=== PATIENT | female | born 2000 | race Caucasian/White ===

== ENCOUNTER 2022-07-04 13:27 | Outpatient (CLI) | payer BC, SELFPAY ==
[2022-07-04 22:13] LABS: Hepatitis B Surface Antigen* Negative (Negative)
[2022-07-04 22:24] LABS: HIV 1/2/P24 Combo Screen* Negative (Negative)
[2022-07-04 22:31] LABS: Hepatitis C Virus Antibody* Negative (Negative)
[2022-07-04 23:42] LABS: Hepatitis B Surface Antibody* Negative (Negative)
[2022-07-04 23:49] LABS: Chlamydia DNA Amplified* NOT DETECTED (No Detected); GC DNA Amplified* NOT DETECTED (No Detected)
[2022-07-06 17:19] LABS: Rapid Plasma Reagin (RPR) Non Reactive (Non Reactive)
== END 2022-07-04 13:28 | disposition home or self-care (01) ==
PROVIDERS: PCP Family Medicine; Visit Provider Physician Assistant Medical
DX: Z01.419 Encounter for gynecological examination (general) (routine) without abnormal findings
CPT/HCPCS: 86592; 86703; 86706; 86803; 87340; 87491; 87591

== ENCOUNTER 2023-03-13 15:30 | Outpatient (RCR) | payer BC, SELFPAY | END 2023-07-11 15:32 | disposition home or self-care (01) | PROVIDERS: PCP Physician Assistant Medical; Visit Provider Physician Assistant Surgical | DX: M65.9 Synovitis and tenosynovitis, unspecified (principal); M65.4 Radial styloid tenosynovitis [de Quervain]; Z51.89 Encounter for other specified aftercare | CPT/HCPCS: 97035; 97140; 97166; 97530 ==

== ENCOUNTER 2024-06-20 20:20 | Emergency (ER) | payer BC, SELFPAY ==
[2024-06-20 20:42] VITALS: BP 110/76; PULSE 81; RESP 16; TEMP 36.6; O2SAT 98; BMI 51.0
[2024-06-20 20:51] LABS: Ur HCG Qualitative* POSITIVE (Negative)
--- NOTE | 2024-06-20 21:01 | CRLHL7_ITS ---
For Patients: As a result of the Century Cures Act, medical imaging exams and procedure reports are released immediately into your electronic medical record. You may view this report before your referring provider. If you have questions, please contact your health care provider. Indication: Abdominal pain, positive test Technique: Transvaginal pelvic ultrasound with evaluation of and maternal anatomy. Grayscale and color Doppler imaging utilized. Comparison: None Findings: Single live intrauterine gestation noted. heart rate measures 147 bpm. BPD 2.7 centimeters. HC 10.4 centimeters. AC 8.3 centimeters. FL 1.3 centimeters. This corresponds to a age of 14 weeks 3 days. EFW 95 grams. Placenta is posterior position. Fetus in breech position. Impression: Single live intrauterine gestation with parameters as above. Dictated by Eric Blankenship MD @ 06/20/2024 10:30:38 PM (Electronically Signed)
[2024-06-20 21:03] LABS: Appearance Urine Clear (Clear); Bilirubin Urine Negative (Negative); Blood Urine Negative (Negative); Color Urine Yellow (Yellow); Glucose Urine Negative (Negative); Ketones Urine Negative (Negative); Leukocyte Esterase Urine Trace (Negative); Nitrite Urine Negative (Negative); Protein Urine Negative (Negative); Specific Gravity Urine 1.015 (1.000-1.030); Urobilinogen Urine 0.2 (0.2-1.0); pH Urine 5.5 (5.0-8.5)
[2024-06-20 21:19] LABS: Bacteria Urine Few; RBC Urine 0-2 (0-2); Squamous Epithelial Cell Urine Few (None-Few)
[2024-06-20 21:26] LABS: Lactate* 0.6 mmol/L (0.5-1.9)
[2024-06-20 21:28] LABS: Basophils Absolute Auto 0.02 K/uL (0.00-0.30); Basophils Percent Auto 0.2 % (0.0-3.0); Eosinophils Absolute Auto 0.08 K/uL (0.00-0.50); Eosinophils Percent Auto 0.8 % (0.0-7.0); Hematocrit 36.1 % (33.0-51.0); Hemoglobin* 12.4 gm/dL (12.0-16.0); Immature Granulocytes Abs Auto 0.04 K/uL (0.00-0.30); Immature Granulocytes Pct Auto 0.4 %; Lymphocytes Absolute Auto 2.86 K/uL (0.90-2.90); Lymphocytes Percent Auto 27.7 % (20-44); Mean Corpuscular HGB Conc 34 gm/dL (32-36); Mean Corpuscular Hemoglobin 29 pg (26-34); Mean Corpuscular Volume 85 fL (80-100); Monocytes Percent Auto 6.8 % (0.0-11.0); Neutrophils Absolute Auto 6.61 K/uL (1.7-7.0); Neutrophils Percent Auto 64.1 % (42.0-72.0); Platelet Count* 238 K/uL (140-440); RDW Coefficient of Variation % 12.8 % (11.5-15.5); Red Blood Count 4.27 m/uL (4.00-5.20); White Blood Count* 10.31 K/uL (4.50-11.00)
[2024-06-20 21:31] LABS: Slide Review Reflex No
--- NOTE | 2024-06-20 21:42 | ED_ITS ---
HPI - General Adult General Chief complaint: Abdominal Pain Stated complaint: Abdominal pain Time Seen by Provider: 06/20/24 21:00 Source: patient Mode of arrival: ambulatory Limitations: no limitations History of Present Illness HPI narrative: 23-year-old female coming in today complaining of abdominal pain. Pain is been present for a couple of weeks. Pain is located in the epigastric region but she also has some suprapubic discomfort. She denies vomiting. No fevers or chills. States that she has had nausea for about 3 weeks. She states this is not necessarily unusual for her, she has PCOS which causes nausea occasionally. Patient is sexually active, is not on any control. Her last menstrual period was 3 months ago which is also not unusual for her, her menstrual periods are quite irregular. She denies any weight changes that she is aware of. Nothing really seems to make the pain better or worse. Patient is currently not taking any medications. Related Data Home Medications ?Medication ?Instructions ?Recorded ?Confirmed metformin 500 mg tablet,extended tab PO 07/04/22 02/16/24 release 24 hr phentermine 37.5 mg tablet 37.5 mg PO QDAY 07/04/22 02/16/24 vitamin B12 1,000 mcg-folic acid janet sublingual QDAY 07/04/22 02/16/24 400 mcg sublingual lozenge ergocalciferol (vitamin D2) 1,250 1,250 mcg PO QDAY 01/13/23 02/16/24 mcg (50,000 unit) capsule (Vitamin D2) Allergies Allergy/AdvReac Type Severity Reaction Status Date / Time No Known Allergies Allergy Unknown Verified 02/16/24 11:23 Review of Systems Status of ROS: Reports: 10 or more systems reviewed and unremarkable except as noted in History and below [facility] Medical History Viral upper respiratory tract infection ?J06.9 - Acute upper respiratory infection, unspecified (ICD-10) Upper respiratory infection ?J06.9 - Acute upper respiratory infection, unspecified (ICD-10) Sore throat ?J02.9 - Acute pharyngitis, unspecified (ICD-10) Pleurisy ?R09.1 - Pleurisy (ICD-10) High ankle sprain of left lower extremity ?S93.492A - Sprain of other ligament of left ankle, initial encounter (ICD- 10) Benign paroxysmal positional vertigo ?H81.10 - Benign paroxysmal vertigo, unspecified ear (ICD-10) Surgical History No history of previous surgery Family History Mother Diabetes Maternal Grandmother Diabetes Social History Narrative: Does not drink alcohol Non-smoker Smoking Status: Never smoker Exam Narrative: Exam Narrative: obese, well-developed patient in no acute distress. Alert and oriented. Answers questions appropriately. Mood and affect are appropriate. Thoughts are goal oriented and rational. No tangential or magical thinking noted. Patient speaks in full sentences without needing to catch her breath. HEENT: Normocephalic atraumatic. Pupils are equally round reactive to light. Extraocular muscles are intact. Conjunctivae are moist without any icterus noted. Moist mucous membranes. Posterior pharynx is normal. Neck is soft without any lymphadenopathy or thyromegaly. No masses are appreciated. Cardiovascular: Heart is regular rate and rhythm S1 and S2 are present without any murmurs. Lungs: Clear to auscultation bilaterally no wheezes rhonchi or rales are appreciated. Patient takes deep breaths without any discomfort. Abdomen: Soft and nondistended with normal bowel sounds. Mild epigastric tenderness, negative Genao sign. No suprapubic tenderness. Difficult to assess for organomegaly or masses secondary to body habitus. Extremities: Bilateral lower extremities are without edema. Skin: Well perfused without any obvious rashes. Const: Vital Signs, click to edit/add: Vital Signs - 24 hr 06/20/24 20:42 Temperature 97.8 F Pulse Rate [Pulse Oximeter] 81 Respiratory Rate 16 Blood Pressure [Ri ght Upper Arm] 110/76 Pulse Oximetry 98 Course Course ED Course: CBC unremarkable. Urine shows trace leukocyte esterase, 10-25 wbc's. Chemistries are normal, LFTs are normal. CRP 1.4. Normal lipase. Urine test is positive. Patient states that she was unaware that she was . Because of this, we proceeded with a ultrasound which showed a viable intrauterine at 14.3 weeks gestation. Upon further conversation, patient states that she did take a test yesterday at home and it was positive. Vital Signs Vital signs: Initial Vital Signs Temperature 97.8 F 06/20/24 20:42 Temperature Source Temporal Artery Scan 06/20/24 20:42 Pulse Rate 81 06/20/24 20:42 Respiratory Rate 16 06/20/24 20:42 Blood Pressure 110/76 06/20/24 20:42 Blood Pressure Mean 87 06/20/24 20:42 Blood Pressure Position Sitting 06/20/24 20:42 Pulse Oximetry 98 06/20/24 20:42 Vital Signs Temperature 97.8 F 06/20/24 20:42 Pulse Rate 81 06/20/24 20:42 Respiratory Rate 16 06/20/24 20:42 Blood Pressure 110/76 06/20/24 20:42 Pulse Oximetry 98 06/20/24 20:42 Temperature 97.8 F 06/20/24 20:42 Pulse Rate 81 06/20/24 20:42 Respiratory Rate 16 06/20/24 20:42 Blood Pressure 110/76 06/20/24 20:42 Pulse Oximetry 98 06/20/24 20:42 Medical Decision Making MDM Narrative Medical decision making narrative: 23-year-old female with epigastric discomfort, likely due to GERD. We discussed famotidine use. Suprapubic discomfort, question UTI. Will treat based on urine cultures. at 14.3 weeks gestation. Patient will start daily multivitamin. Patient states that she is not taking any medications at this time. Will call OBGYN to schedule appointment. Lab Data Lab results reviewed: Yes I reviewed the patient's lab results Labs: Lab Results 06/20/24 06/20/24 Range/Units 20:45 21:15 WBC 10.31 (4.50-11.00) K/uL RBC 4.27 (4.00-5.20) m/uL Hgb 12.4 (12.0-16.0) gm/dL Hct 36.1 (33.0-51.0) % MCV 85 (80-100) fL MCH 29 (26-34) pg MCHC 34 (32-36) gm/dL RDW Coeff of Stuart 12.8 (11.5-15.5) % Plt Count 238 (140-440) K/uL Neut % (Auto) 64.1 (42.0-72.0) % Lymph % (Auto) 27.7 (20-44) % [place] % (Auto) 6.8 (0.0-11.0) % Eos % (Auto) 0.8 (0.0-7.0) % Baso % (Auto) 0.2 (0.0-3.0) % Neut # (Auto) 6.61 (1.7-7.0) K/uL Lymph # (Auto) 2.86 (0.90-2.90) K/uL [place] # (Auto) 0.70 (0.00-0.90) K/UL Eos # (Auto) 0.08 (0.00-0.50) K/uL Baso # (Auto) 0.02 (0.00-0.30) K/uL Abs Immat Gran (auto) 0.04 (0.00-0.30) K/uL Imm/Tot Granulo (auto) 0.4 % Sodium 135 (135-149) mmol/L Potassium 3.9 (3.6-5.1) mmol/L Chloride 106 (96-114) mmol/L Carbon Dioxide 22 (20-32) mmol/L Anion Gap 7 (7-15) mEq/L BUN 8 (5-24) mg/dL Creatinine 0.5 (0.5-1.5) mg/dL Estimated Creat Clear 138.40 Estimated GFR 135 ml/min Glucose 91 (60-115) mg/dL Lactate 0.6 (0.5-1.9) mmol/L Calcium 9.8 (8.4-10.6) mg/dL Total Bilirubin 0.4 (0.1-1.5) mg/dL Direct Bilirubin 0.4 (0.0-0.5) mg/dL AST 21 (12-35) U/L ALT 16 (4-35) U/L Alkaline Phosphatase 63 (40-150) U/L C-Reactive Protein 1.4 H (0.5-1.0) mg/dL Total Protein 7.2 (6.0-8.3) g/dL Albumin 4.3 (3.3-5.0) g/dL Lipase 112 (23-300) U/L Urine Color Yellow (Yellow) Urine Appearance Clear (Clear) Urine pH 5.5 (5.0-8.5) Ur Specific [place] 1.015 (1.000-1.030) Urine Protein Negative (Negative) Urine Glucose (UA) Negative (Negative) Urine Ketones Negative (Negative) Urine Blood Negative (Negative) Urine Nitrite Negative (Negative) Urine Bilirubin Negative (Negative) Urine Urobilinogen 0.2 (0.2-1.0) Ur Leukocyte Esterase Trace A (Negative) Urine RBC 0-2 (0-2) Urine WBC 10-25 A (0-5) Ur Squamous Epith Cells Few (None-Few) Urine Bacteria Few A (None) Urine HCG, Qual POSITIVE H (Negative) Discharge Plan Discharge Clinical Impression: GERD (gastroesophageal reflux disease), Patient Disposition: Home, Self-Care Condition: Stable Additional Instructions: The pain at the top your stomach is likely caused by GERD or gastroesophageal reflux-this is when acid buildup in the stomach and causes irritation. You can take an [id number] Zantac as needed for the symptoms. You are , baby is at approximately 14 weeks and 3 days gestation. Recommend you start taking a daily vitamin which can be purchased [id number]. You should call the Women's Health office tomorrow to schedule a appointment. We also checked urine cultures to see if there is any bacteria growing in the urine. If this is positive you will be called in the next couple of days and will be given an antibiotic. Prescriptions: No Action metformin 500 mg tablet extended release 24 hr PO phentermine 37.5 mg tablet 37.5 mg PO QDAY vitamin [id number] acid 1,000-400 mcg lozenge sublingual QDAY ergocalciferol (vitamin D2) [Vitamin D2] 1,250 mcg (50,000 unit) capsule 1,250 mcg PO QDAY Follow Up/Referrals: Katey Jacinto PA-C [Primary Care Provider] - Stand Alone Forms: [facility] Info Instructions
[2024-06-20 21:44] LABS: Chloride* 106 mmol/L (96-114); Potassium* 3.9 mmol/L (3.6-5.1); Sodium* 135 mmol/L (135-149)
[2024-06-20 21:45] LABS: Albumin* 4.3 g/dL (3.3-5.0)
[2024-06-20 21:46] LABS: Creatinine* 0.5 mg/dL (0.5-1.5); Estimated Glomerular Filt Rate 135 ml/min
[2024-06-20 21:47] LABS: Anion Gap 7 mEq/L (7-15); Blood Urea Nitrogen* 8 mg/dL (5-24); Carbon Dioxide* 22 mmol/L (20-32); Glucose* 91 mg/dL (60-115)
[2024-06-20 21:48] LABS: Alanine Aminotransferase* 16 U/L (4-35); Alkaline Phosphatase* 63 U/L (40-150); Aspartate Amino Transferase* 21 U/L (12-35); Bilirubin Direct* 0.4 mg/dL (0.0-0.5); Bilirubin Total* 0.4 mg/dL (0.1-1.5); Calcium* 9.8 mg/dL (8.4-10.6); Lipase* 112 U/L (23-300); Total Protein* 7.2 g/dL (6.0-8.3)
[2024-06-20 21:50] LABS: C Reactive Protein* 1.4 mg/dL (0.5-1.0)
[2024-06-20 22:15] VITALS: BP 116/71; PULSE 74; RESP 16
[2024-06-20 22:16] VITALS: BP 121/74; PULSE 79; RESP 16; TEMP 36.6; O2SAT 98
== END 2024-06-20 22:17 | disposition home or self-care (01) ==
PROVIDERS: Emergency Provider Family Medicine; PCP Physician Assistant Medical
DX: K21.9 Gastro-esophageal reflux disease without esophagitis (principal); Z32.01 Encounter for pregnancy test, result positive; Z3A.14 14 weeks gestation of pregnancy
CPT/HCPCS: 36415; 76817; 80048; 80076; 81001; 81025; 83605; 83690; 85025; 86140; 87086; 93976; 99284

== ENCOUNTER 2024-06-28 14:00 | Outpatient (CLI) | payer BC, SELFPAY | END 2024-06-28 14:01 | disposition home or self-care (01) | LOC: NFLDREF 06-29 08:26 | PROVIDERS: PCP Physician Assistant Medical; Referring Provider Physician Assistant Medical; Visit Provider Advanced Practice Midwife | DX: O09.32 Supervision of pregnancy with insufficient antenatal care, second trimester (principal); Z3A.15 15 weeks gestation of pregnancy; Z67.40 Type O blood, Rh positive | CPT/HCPCS: 86592; 86703; 86704; 86706; 86762; 86787; 86803; 86850; 86900; 86901; 87340 ==

== ENCOUNTER 2024-07-21 12:48 | Outpatient (CLI) | payer BC, SELFPAY | END 2024-07-21 12:49 | disposition home or self-care (01) | LOC: US 12:48 | PROVIDERS: PCP Physician Assistant Medical; Visit Provider Advanced Practice Midwife | DX: O99.212 Obesity complicating pregnancy, second trimester (principal); Z3A.18 18 weeks gestation of pregnancy | CPT/HCPCS: 76811 ==

== ENCOUNTER 2024-08-18 12:57 | Outpatient (CLI) | payer BC, SELFPAY | END 2024-08-18 12:58 | disposition home or self-care (01) | LOC: US 12:58 | PROVIDERS: PCP Physician Assistant Medical; Visit Provider Midwife | DX: O99.212 Obesity complicating pregnancy, second trimester (principal); E66.01 Morbid (severe) obesity due to excess calories; Z3A.22 22 weeks gestation of pregnancy | CPT/HCPCS: 76816 ==

== ENCOUNTER 2024-09-15 14:20 | Outpatient (CLI) | payer BC, SELFPAY | END 2024-09-15 14:21 | disposition home or self-care (01) | LOC: US 14:21 | PROVIDERS: PCP Physician Assistant Medical; Visit Provider Midwife | DX: O99.212 Obesity complicating pregnancy, second trimester (principal); Z3A.26 26 weeks gestation of pregnancy | CPT/HCPCS: 76816; 86592 ==

== ENCOUNTER 2024-11-04 13:00 | Outpatient (CLI) | payer BC, SELFPAY ==
--- NOTE | 2024-11-04 13:00 | CRLHL7_ITS ---
For Patients: As a result of the Cures Act, medical imaging exams and procedure reports are released immediately into your electronic medical record. You may view this report before your referring provider. If you have questions, please contact your health care provider. INDICATION: Obesity TECHNIQUE: Real time castro scale imaging of the fetus was performed. COMPARISON: 08/18/2024 FINDINGS/IMPRESSION: Sonographic imaging demonstrates a single living intrauterine gestation. Fetus demonstrates a regular cardiac rate of 163 beats per minute. Fetus has a vertex position. The placenta lies posterior. Amniotic fluid volume appears normal and there is a single deepest pocket of 3.3 cm. The estimated weight is 2138gm which lies at the 21st %. On the prior OB ultrasound dated 08/18/2024 the estimated weight was at the 28th percentile. BPD 89th percentile. HC 82nd percentile. AC 19th percentile. FL 5th percentile. Sonographic gestational age 34 weeks 2 days and a sonographic due date of 12/14/2024. Good correlation with dates. Normal interval growth. The fetus was active and demonstrated normal breathing movements. There was normal flexion and extension of the trunk and extremities. Dictated by Shivam Shaver MD @ 11/04/2024 8:55:51 PM (Electronically Signed)
== END 2024-11-04 13:01 | disposition home or self-care (01) ==
LOC: US 13:00
PROVIDERS: PCP Physician Assistant Medical; Visit Provider Midwife
DX: O99.213 Obesity complicating pregnancy, third trimester (principal); Z3A.34 34 weeks gestation of pregnancy
CPT/HCPCS: 76816; 76819

== ENCOUNTER 2024-11-04 13:59 | Outpatient (CLI) | payer BC, SELFPAY | END 2024-11-04 14:00 | disposition home or self-care (01) | LOC: NFLDREF 14:03 | PROVIDERS: PCP Physician Assistant Medical; Visit Provider Advanced Practice Midwife | DX: O99.213 Obesity complicating pregnancy, third trimester (principal); Z3A.34 34 weeks gestation of pregnancy | CPT/HCPCS: 82239; 84450; 84460 ==

== ENCOUNTER 2024-11-11 15:26 | Outpatient (CLI) | payer BC, SELFPAY ==
[2024-11-12 14:13] LABS: Strep B DNA Probe Negative (Negative)
[2024-11-12 14:58] LABS: Strep B Susceptibility Needed? No
== END 2024-11-11 15:27 | disposition home or self-care (01) ==
PROVIDERS: PCP Physician Assistant Medical; Visit Provider Advanced Practice Midwife
DX: O99.213 Obesity complicating pregnancy, third trimester (principal); O99.713 Diseases of the skin and subcutaneous tissue complicating pregnancy, third trimester; L29.9 Pruritus, unspecified; Z3A.35 35 weeks gestation of pregnancy
CPT/HCPCS: 82239; 84450; 84460; 87081; 87653

== ENCOUNTER 2024-11-18 15:40 | Outpatient (CLI) | payer BC, SELFPAY | END 2024-11-18 15:41 | disposition home or self-care (01) | PROVIDERS: PCP Physician Assistant Medical; Visit Provider Advanced Practice Midwife | DX: O99.713 Diseases of the skin and subcutaneous tissue complicating pregnancy, third trimester (principal); L29.9 Pruritus, unspecified; O99.213 Obesity complicating pregnancy, third trimester; E66.01 Morbid (severe) obesity due to excess calories; Z3A.36 36 weeks gestation of pregnancy | CPT/HCPCS: 82239; 84450; 84460 ==

== ENCOUNTER 2024-11-25 15:28 | Outpatient (CLI) | payer BC, SELFPAY | END 2024-11-25 15:29 | disposition home or self-care (01) | PROVIDERS: PCP Physician Assistant Medical; Visit Provider Advanced Practice Midwife | DX: O99.713 Diseases of the skin and subcutaneous tissue complicating pregnancy, third trimester (principal); L29.9 Pruritus, unspecified; Z3A.37 37 weeks gestation of pregnancy | CPT/HCPCS: 82239; 84450; 84460 ==

== ENCOUNTER 2024-11-28 11:13 | Inpatient (IN) | payer BC, SELFPAY ==
[2024-11-28] VITALS (11 sets, daily range): BP systolic 110–129; BP diastolic 66–79; PULSE 74–86; RESP 16–18; TEMP 36.8–37.4; O2SAT 98–100; BMI 50.7
--- NOTE | 2024-11-28 12:37 | P.LDBA_ITS ---
Subjective History of Present Illness Date Seen: 11/28/24 Narrative: Patient is being admitted to Labor and Delivery for induction of labor due to new diagnosis of intrahepatic cholestasis of . She is a 23 year old at 37.3 weeks gestation. Her full history and physical was dictated by Ludmila Toledo CNM on 11/25/24. Please see this for details. Specific Issues/Plans Partner: Stanley Baby: pt does not want to know sex H&P done 11/25/2023 by DEYVI Kiran #BMI >40 nutrition referral: Completed 09/09/2024 anesthesia consult: Completed 09/14/2024 OB consult: completed 11/15/2024 by MD PATRICIA Level II US-ordered, done Early screening-not done, new ACOG recommendation for Hgb A1C only- 5.6 Weekly BPP and/or NST starting at 34 weeks: testing request form updated 08/30 Growth US at 28 weeks and 34 weeks 34wks: EFW 21%, SDP 3.3 06/17 Recommend considering elective IOL at 39.0 weeks #Hx depression and anxiety no medications at this time using exercise to manage mood #Panic attacks, started around 20 weeks Therapy referral Had them in her teens but not since #Rubella non-immune, recommend vaccine PP #New onset itching without rash on palms and forearms at 34 wks LFTs and Bile acids normal at 34, 35 and 36wks Weekly labs if itching persists IMAGING: * Level 2 US 07/21/2024 with normal findings, but some suboptimal views. jorge alberto mmend follow up ultrasound with [facility] in 4 weeks to reassess growth and suboptimally visualized anatomy. Following this, recommend follow up growth at 28 and 34 weeks in addition to weekly testing starting at 34 weeks, which I presume will be scheduled with patient's primary [employer].--Follow up ordered. * 08/18/2024 anatomy that was suboptimally seen at the prior US appeared within normal limits today, although some portions of the anatomy were suboptimally seen as noted above. Recommend a repeat US in 4 weeks at [facility] in [place] to re-evaluate growth and anatomy, including anatomy that was suboptimally seen today.--order placed * 09/15/2024 [facility] US follow-up:Impression: 1. Serrano at 26w6d gestational age. 2. The remaining anatomic survey was completed, no anomalies commonly detected by ultrasound were identified within the limits of ultrasound. 3. Growth parameters and estimated weight were consistent with gestational age predicted by assigned CYRUS. 4. The amniotic fluid volume appeared normal. EFW 19.4% * 11/04/24: EFW 21%ile. Normal findings with good growth. COVID: initial series, not boosted, declined Flu: TDAP: 10/08/2024 RSV: 11/11/2024 32wk Mental Health: 34wk Hgb: GBS OB - Problem Based A/P Additional Plan (1) Intrahepatic cholestasis of : Status: Acute (2) 37 weeks gestation of : Status: Acute (3) Encounter for induction of labor: Status: Acute (4) Morbid obesity with body mass index (BMI) of 40.0 or higher: Status: Acute (5) Panic attacks: Status: Acute (6) Chronic major depressive disorder: Status: Acute (7) Chronic anxiety: Status: Acute Plan Assessment:?? at 37.3 weeks gestation?? GBS negative? Patient is coping well plan for induction of labor? Labor type: Induced, Not in labor? Category 1 FHR pattern.? complicated by: BMI >40, Hx of depression and anxiety, panic attacks starting around 20 weeks, Rubella non-immune, Intrahepatic cholestasis of Plan:?? * ?Admit to L & D? * IV access: not needed at this time. * Monitoring per policy: continuous ? * Candidate for analgesia of choice.? Planning unmedicated for pain management * Reviewed risks and benefits of IOL with Cook balloon, Pitocin vs Cytotec/Cervidil. Cervix dilated to 3cm, decision to use Cytotec made with shared decision making. Pitocin to follow if needed.? * Patient encouraged to reposition and ambulate to promote physiologic labor and . * Anticipate ? Delivery/Labor/Induction Plan Plan: induction Induction method: per misoprostol protocol OB Exam Physical Exam Vital signs: Pulse BP Pulse Ox 86 121/75 98 11/28/24 11:48 11/28/24 11:48 11/28/24 11:47 Narrative: Vitals Reviewed Constitutional:? Alert and oriented x3 HEENT:? Normocephalic, atraumatic Neck:? Supple Lungs:? Clear to auscultation bilaterally Heart:? Regular rate and rhythm, no murmur, rub or gallop Abdomen:? Soft, nontender, and gravid. Vertex by Basilio's, confirmed with cervical exam. Extremities:? No edema or erythema Cervix: 3 cm/50%/-3 station/vertex NST: 145 bpm/moderate variability/+accelerations/-decelerations/no contractions Detailed Labor and Delivery Exam Patient Gravid: Yes
[2024-11-28 13:32] LABS: Basophils Absolute Auto 0.02 K/uL (0.00-0.30); Basophils Percent Auto 0.2 % (0.0-3.0); Eosinophils Absolute Auto 0.07 K/uL (0.00-0.50); Eosinophils Percent Auto 0.7 % (0.0-7.0); Hematocrit 34.8 % (33.0-51.0); Immature Granulocytes Abs Auto 0.06 K/uL (0.00-0.30); Immature Granulocytes Pct Auto 0.6 %; Lymphocytes Percent Auto 19.7 % (20-44); Mean Corpuscular HGB Conc 35 gm/dL (32-36); Mean Corpuscular Hemoglobin 29 pg (26-34); Mean Corpuscular Volume 85 fL (80-100); Monocytes Percent Auto 4.7 % (0.0-11.0); Neutrophils Percent Auto 74.1 % (42.0-72.0); Platelet Count* 291 K/uL (140-440); White Blood Count* 10.58 K/uL (4.50-11.00)
[2024-11-28 13:57] LABS: Slide Review Reflex No
[2024-11-28] MEDS: miSOPROStoL 25 MCG/0.25 TABLET VAGINAL ×2 (14:05→17:35)
[2024-11-28] MEDS: LACTATED RINGERS 1000 ML 1,000 ML 125 ML IV (14:10)
--- NOTE | 2024-11-28 19:50 | PM.OBPNL ---
Subjective Date Seen: 11/28/24 Narrative: ?Naina is coping well with labor pain/contractions. ?Sai is with her for support. ?She would like to continue with repositioning and relaxation for comfort and pain management.? Objective Exam: VSS, afebrile General Appearance:? Calm, cooperative. ?No acute distress. ? Psychiatric Exam: Alert and oriented, appropriate affect Abdomen: Gravid Ctx: ?Q 2-4 min apart. ?Mild ? ? FHTs: ?Baseline: 140. ? ? Variability: moderate. ?Accels: +. ? ?Decels: variables?. SVE: deferred Membranes: Intact ? Vital Signs: Last Vital Signs Temp 98.8 F 11/28/24 17:44 Pulse 77 11/28/24 17:44 Resp 16 11/28/24 17:44 BP 125/68 11/28/24 17:44 Pulse Ox 99 11/28/24 17:44 Plan Plan: Assessment:?? at 37.3 weeks gestation?? GBS negative Patient is coping well with challenges of labor.?? Labor type: Induced, Early labor? Category 2 FHR pattern.? complicated by: BMI >40, Hx of depression and anxiety, panic attacks starting around 20 weeks, Rubella non-immune, Intrahepatic cholestasis of Labor complicated by: NA Plan:?? Continue Cytotec per protocol Continue with routine intrapartum cares as ordered.?? Patient encouraged to move and change positions to promote physiologic labor and .?? Nonpharmacologic comfort measures per patient preference. Candidate for analgesia of choice if desired. Anticipate progress to NVD. ?
--- NOTE | 2024-11-28 21:44 | PM.OBPNL ---
Subjective Date Seen: 11/28/24 Narrative: ?Called to patient bedside to evaluate for placement of internal monitor. RN reports difficulty throughout the day to monitor FHR, unable to get Novii to work well and having to hold the external US in place. Patient was examined by RN and reports she is now 4 cm. Discussed internal monitoring with patient and with this AROM. As she is currently in process of induction AROM at this time is a reasonable option. Reviewed R/B/A and patient agreed with plan to AROM and place internal monitor. Also discussed adding IV Pitocin at this time to continue with induction progress. R/B/A reviewed, patient agrees to moving forward with IV Pitocin per protocol. Partner is present and supportive. She would like to be up and moving around more at bedside now with internal in place. Objective Exam: VSS, afebrile General Appearance:? Calm, cooperative. ?No acute distress. ? Psychiatric Exam: Alert and oriented, appropriate affect Abdomen: Gravid Ctx: ?Q 2-3 min apart. ? ?Moderate ? FHTs: ?Baseline: 140. ? ? Variability: moderate. ?Accels: +. ? ?Decels: ?-. SVE: 4/80/-2 Membranes: ?AROM clear fluid Vital Signs: Last Vital Signs Temp 98.8 F 11/28/24 17:44 Pulse 86 11/28/24 21:18 Resp 16 11/28/24 17:44 BP 122/78 11/28/24 21:18 Pulse Ox 100 11/28/24 21:01 Plan Plan: Assessment:?? at 37.3 weeks gestation?? GBS negative Patient is coping well with challenges of labor.?? Labor type: Induced, Early labor? Category 1 FHR pattern.? complicated by: BMI >40, Hx of depression and anxiety, panic attacks starting around 20 weeks, Rubella non-immune, Intrahepatic cholestasis of Labor complicated by: NA Plan:?? IV Pitocin per protocol Internal FHR monitor placed, IUPC not placed at this time. Consider if difficulty monitoring contractions or not progressing. Continue with routine intrapartum cares as ordered.?? Patient encouraged to move and change positions to promote physiologic labor and .?? Nonpharmacologic comfort measures per patient preference. Candidate for analgesia of choice if desired. Anticipate progress to NVD. ?
[2024-11-28] MEDS: OXYTOCIN 30 unit/500 ML in NS 30 UNIT/500 ML BAG IVPB (21:57)
[2024-11-29] VITALS (103 sets, daily range): BP systolic 75–149; BP diastolic 37–86; PULSE 72–120; RESP 16; TEMP 36.6–37.1; O2SAT 98–100
[2024-11-29] MEDS: LACTATED RINGERS 1000 ML 1,000 ML 1200 ML IV (02:03)
--- NOTE | 2024-11-29 06:28 | PM.OBPNL ---
Subjective Date Seen: 11/29/24 Narrative: ?Naina is coping with labor pain/contractions currently using Nitrous. ?Sai is with her for support. ?She would like to have an epidural placed for comfort and pain management.?This was attempted earlier and was not successful, she then elected to use Nitrous. At this time she is struggling to cope with Nitrous and requesting anesthesia try again to place an epidural. They have been contacted. She requested a cervical exam, she is unchanged from previous exam by RN. Objective Exam: VSS, afebrile General Appearance:? Calm, cooperative. ?No acute distress. ? Psychiatric Exam: Alert and oriented, appropriate affect Abdomen: Gravid Ctx: ?Q 2-4 min apart. ? ?Moderate ? FHTs: ?Baseline: 145. ? ? Variability: moderate. ?Accels: +. ? ?Decels: ?-. SVE: Per RN 7cm/90/-2, my exam 6/70/-2, Membranes: ?AROM clear at 2134 Vital Signs: Last Vital Signs Temp 98.3 F 11/29/24 06:00 Pulse 80 11/29/24 06:01 Resp 16 11/28/24 17:44 BP 100/55 L 11/29/24 06:01 Pulse Ox 100 11/29/24 02:03 Contractions Pitocin Rate (mU/min): 3 Plan Plan: Assessment:?? at 37.4 weeks gestation?? GBS negative Patient is coping with challenges of labor.?? Labor type: Induced, Active labor? Category 1 FHR pattern.? complicated by: BMI >40, Hx of depression and anxiety, panic attacks starting around 20 weeks, Rubella non-immune, Intrahepatic cholestasis of Labor complicated by: Inadequate pain relief due to difficulty in epidural placement, anesthesia contacted to retry placement Plan:?? Continue IV Pitocin per protocol Epidural placement per anesthesia Consider IUPC placement if difficulty monitoring contractions with external monitor Continue with routine intrapartum cares as ordered.?? Patient encouraged to move and change positions to promote physiologic labor and .?? Nonpharmacologic comfort measures per patient preference. Candidate for analgesia of choice if desired. Anticipate progress to NVD. ?
[2024-11-29] MEDS: ROPIVACAINE 0.2% 100 ml 100 ML 12 MG EPIDURAL (06:51)
[2024-11-29] MEDS: BUPIVACAINE 0.25% PF 10 ML 10 ML ML EPIDURAL (06:51)
--- NOTE | 2024-11-29 07:03 | PM.ANBPRC ---
[facility] Medical History Viral upper respiratory tract infection ?J06.9 - Acute upper respiratory infection, unspecified (ICD-10) Upper respiratory infection ?J06.9 - Acute upper respiratory infection, unspecified (ICD-10) Sore throat ?J02.9 - Acute pharyngitis, unspecified (ICD-10) Pleurisy ?R09.1 - Pleurisy (ICD-10) High ankle sprain of left lower extremity ?S93.492A - Sprain of other ligament of left ankle, initial encounter (ICD-10) Benign paroxysmal positional vertigo ?H81.10 - Benign paroxysmal vertigo, unspecified ear (ICD-10) Surgical History No history of previous surgery Family History Mother Diabetes Maternal Grandmother Diabetes Brother Cerebral palsy Sister Asthma Social History Narrative: Does not drink alcohol Non-smoker SOCIAL? ? Education: Associate's degree currently in school? ? 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 ? Partner: Stanley? boyfriend works security? Lives with: lives with her parents? ? Pets: 4 dogs? ? Abuse: Denies past ? Unable to assess current, partner present? ? Special Diet: Denies? ? Ok with a blood transfusion: yes? ? Culture or nondenominational beliefs: denies? RISK FACTORS? ? Exercise Times/wk: gym 5x weeks, not now walking 2 miles a day? ? Depression/Anxiety: both? ? Previous Treatments , exercising was working well for her to manage no meds at this time ? Therapy , as a child SHERWIN: 0 PHQ 9: 0? ? Seat Belt Use: Routinely ? Smoking: Denies past/present? ? Alcohol/day: Denies while ? ?twice a month one cocktail when not Caffeine: energy drinks before has cut these out Drug Use: Denies past/present? What is your current living situation?: I presently have a place to live Problems where you live: no known problems In the past 12 months, utilities in danger of being shut off: no In past 12 months, lack of transportation kept you from medical appts, meetings, work, or getting things needed for daily living: no In the past 12 mos, have been you worried that your food would run out before you had money to buy more?: never true In the past 12 mos, the food you bought just didn't last and you didn't have money to buy more?: never true Smoking Status: Never smoker Second hand tobacco smoke exposure: No How often do you have a drink containing alcohol: never AUDIT-C Alcohol total score: 0 Non-prescribed substance use: denies use How often does anyone, including family, friends and others, physically hurt you: never How often does anyone, including family, friends and others, insult or talk down to you: never How often does anyone, including family, friends and others, threaten you with harm: never How often does anyone, including family, friends and others, scream or curse at you: never Meds Home Medications and Allergies Home Medications ?Medication ?Instructions ?Recorded ?Confirmed ?Type aspirin 81 mg capsule 81 mg PO QDAY 06/28/24 11/28/24 History vit 168-iron 27 mg-folic 1 cap PO DAILY 06/28/24 11/28/24 History acid 800 mcg-omega3 235 mg capsule (One-A-Day -1) Allergies Allergy/AdvReac Type Severity Reaction Status Date / Time No Known Allergies Allergy Unknown Verified 11/25/24 08:41 Results Labs Labs: Laboratory Results - last 24 hr 11/28/24 13:25 WBC 10.58 RBC 4.10 Hgb 12.0 Hct 34.8 MCV 85 MCH 29 MCHC 35 RDW Coeff of Stuart 13.0 Plt Count 291 Neut % (Auto) 74.1 H Lymph % (Auto) 19.7 L [place] % (Auto) 4.7 Eos % (Auto) 0.7 Baso % (Auto) 0.2 Neut # (Auto) 7.80 H Lymph # (Auto) 2.10 [place] # (Auto) 0.50 Eos # (Auto) 0.07 Baso # (Auto) 0.02 Abs Immat Gran (auto) 0.06 Imm/Tot Granulo (auto) 0.6 Blood Type O Positive Antibody Screen NEGATIVE Vital Signs Vital Signs: Last Vital Signs Temp 98.3 F 11/29/24 06:00 Pulse 86 11/29/24 07:01 Resp 16 11/28/24 17:44 BP 133/60 11/29/24 07:01 Pulse Ox 100 11/29/24 06:58 Weight: 131.995 kg Height: 161.29 cm Anesthesia Procedures Epidural Insertion Patient Location: OB Start Time: 06:15 Stop Time: 07:05 Start Date: 11/29/24 Stop Date: 11/29/24 Reason for Block: procedure for pain Patient Position: sitting Performed By: Gerald Conrad Preanesthetic Checklist: IV checked, risks and benefits discussed, surgical consent, monitors and equipment checked, pre-op evaluation, timeout performed and anesthesia consent Prep: chlorhexidine gluconate Monitoring: blood pressure monitoring, continuous pulse oximetry and heart rate Approach: midline Vertebral Space: lumbar (1-5) Epidural Technique: DURAN saline Needle Type: Tuohy needle Injection Technique: continuous catheter Needle gauge: 17 Needle Length (cm): 10 cm Needle Insertion Depth (cm): 10 Catheter Gauge: 19 Catheter Type: multi-orifice Catheter at skin depth (cm): 16 Test Dose Result: negative and lidocaine 1.5% with epinephrine 1 to 200,000 Events: other (17 gauge, 4.5 inch needle used)
[2024-11-29] MEDS: PHENYLEPHRINE 100 MCG/ML SYRINGE IVP ×4 (07:55→09:19)
[2024-11-29] MEDS: ePHEDrine sulfate 5 MG/ML inj 10 MG IVP ×2 (08:36→08:56)
[2024-11-29] MEDS: LACTATED RINGERS 1000 ML 1,000 ML 125 ML IV ×2 (08:38→13:46)
[2024-11-29] MEDS: ACETAMINOPHEN 500 MG TABLET 1000 MG PO ×2 (08:52→23:53)
--- NOTE | 2024-11-29 09:30 | PM.OBPNL ---
Subjective Date Seen: 11/29/24 Narrative: Naina is a 23 yo at 37 4/7 weeks gestation that presented yesterday midday for IOL for newly diagnosed Cholestasis with elevated bile acids at 17. AST/ALT were normal. Her induction was started with cytotec, she received 2 total doses before AROM at 2134 of clear fluid and pitocin. She was on 3 mu of pitocin this am. She had just received an epidural for pain management and is now comfortable. Prior exam by RN was /, but per DEYVI Dior she felt she was not yet in active labor 5-6 cm. Plan to recheck patient and develop plan. She is supported in labor by her , Sai. Objective Exam: Objective: Constitutional: Alert and oriented x3, no distress, coping well and comfortable with epidural Vital signs stable, see nurse documentation Abdomen: gravid, contractions palpate moderate with contractions and soft between Cervix: 5 cm/60%/-1 station/vertex by CNM; IUPC inserted at 0742 NST: 145 bpm/moderate variability/15x15 accelerations/variable/early decelerations occasional/contractions every 2-5 minutes Vital Signs: Last Vital Signs Temp 98.8 F 11/29/24 08:53 Pulse 90 11/29/24 09:26 Resp 16 11/29/24 07:30 BP 109/54 L 11/29/24 09:26 Pulse Ox 99 11/29/24 07:49 Contractions Pitocin Rate (mU/min): 3 Plan Plan: Assessment:?? 23 yo at 37.4 weeks gestation?? GBS negative Patient is coping with challenges of labor.?? Labor type: Induced, Active labor? Category 2 FHR pattern.? complicated by: BMI >40, Hx of depression and anxiety, panic attacks starting around 20 weeks, Rubella non-immune, Intrahepatic cholestasis of Labor complicated by: None Plan:?? Routine intrapartum cares as ordered. Continue increase of pitocin. Discussed IUPC insertion to better titrate pitocin to reach adequate contractions. Monitoring per policy, continuous?with epidural/pitocin Comfortable with epidural. Continue until delivery for pain management Patient encouraged to reposition to promote physiologic labor and .? Dr. Alonso aware of patient. Will update as needed. Anticipate
--- NOTE | 2024-11-29 14:39 | PM.OBPNL ---
Subjective Date Seen: 11/29/24 Narrative: Naina is a 23 yo at 37 4/7 weeks gestation that presented yesterday midday for IOL for newly diagnosed Cholestasis with elevated bile acids at 17. AST/ALT were normal. Her induction was started with Cytotec, she received 2 total doses before AROM at 2134 of clear fluid and pitocin. IUPC in place, however she remains inadequate in MVU's at 140-160's. Pitocin is at 14 mu at this time. She is supported in labor by her , Sai. Objective Exam: Objective: Constitutional: Alert and oriented x3, mild distress, coping well Vital signs stable, see nurse documentation Abdomen: gravid, contractions palpate moderate with contractions and soft between Cervix: 8 cm/90%/0 station/vertex NST: 145 bpm/moderate variability/15x15 accelerations/no decelerations/contractions every 1-4 minutes; MVU 140-160's Vital Signs: Last Vital Signs Temp 98.5 F 11/29/24 18:03 Pulse 88 11/29/24 18:48 Resp 16 11/29/24 18:48 BP 109/68 11/29/24 18:48 Pulse Ox 99 11/29/24 07:49 Assessment Amniotic Membrane Status: AROM Plan Plan: 23 yo at 37.4 weeks gestation?? GBS negative Patient is coping with challenges of labor.?? Labor type: Induced, NOW Active labor? Category 1 FHR pattern.? complicated by: BMI >40, Hx of depression and anxiety, panic attacks starting around 20 weeks, Rubella non-immune, Intrahepatic cholestasis of Labor complicated by: Protracted active phase with inadequate contraction MVU's Plan:?? Routine intrapartum cares as ordered. Continue increase of pitocin. IUPC to adjust pitocin based on MVU's to a max of 20 mu. Currently, not adequate mvu's and recommended increased titration. Will plan recheck in 2 hours. Monitoring per policy, continuous?with epidural/Pitocin Comfortable with epidural. Continue until delivery for pain management Patient encouraged to reposition to promote physiologic labor and .? Dr. Alonso aware of patient. Will update as needed. She is aware she has made change. Dr. Alonso updated on plan. Anticipate
[2024-11-29] MEDS: ROPIVACAINE 0.2% 100 ml 100 ML 10 MG EPIDURAL (17:15)
--- NOTE | 2024-11-29 18:27 | PM.OBPNL ---
Subjective Time Seen by Provider: 11:30 Date Seen: 11/29/24 Narrative: Naina is a 23 yo at 37 4/7 weeks gestation that presented yesterday midday for IOL for newly diagnosed Cholestasis with elevated bile acids at 17. AST/ALT were normal. Her induction was started with cytotec, she received 2 total doses before AROM at 2134 of clear fluid and pitocin. IUPC was inserted to better monitor and adjust pitocin. She remains inadequate at this time but is feeling some pressure. Pitocin is at 12 mu at this time. Will reassess for cervical change and continue to adjust pitocin as needed. She is supported in labor by her , Sai. Objective Exam: Objective: Constitutional: Alert and oriented x3, no distress, coping well Vital signs stable, see nurse documentation Abdomen: gravid, contractions palpate moderate with contractions and soft between Cervix: 7 cm/90%/0 station/vertex NST: 145 bpm/moderate variability/15x15 accelerations/no decelerations/contractions every 2-4 minutes. Inadequate MVU at 130-150's Vital Signs: Last Vital Signs Temp 98.5 F 11/29/24 18:03 Pulse 100 11/29/24 18:18 Resp 16 11/29/24 18:03 BP 108/55 L 11/29/24 18:18 Pulse Ox 99 11/29/24 07:49 Contractions Pitocin Rate (mU/min): 3 Plan Plan: 23 yo at 37.4 weeks gestation?? GBS negative Patient is coping with challenges of labor.?? Labor type: Induced, NOW Active labor? Category 1 FHR pattern.? complicated by: BMI >40, Hx of depression and anxiety, panic attacks starting around 20 weeks, Rubella non-immune, Intrahepatic cholestasis of Labor complicated by: None Plan:?? Routine intrapartum cares as ordered. Continue increase of pitocin. IUPC to adjust pitocin based on MVU's to a max of 20 mu. Currently, not adequate mvu's. Monitoring per policy, continuous?with epidural/Pitocin Comfortable with epidural. Continue until delivery for pain management Patient encouraged to reposition to promote physiologic labor and .? Dr. Alonso aware of patient. Will update as needed. She is aware she has made change. Will update her on progress as needed. Anticipate
--- NOTE | 2024-11-29 18:27 | W.PM.OBVAGDE ---
OB Procedure Vag Delivery Mother Details Mother Details: The patient is a 23 year-old, 1, Para 0, admitted on 11/28/24 at 37 3/7 weeks gestation. : 1 Para: 1 Weeks Gestation: 37.4 Admission Date: 11/28/24 Additional Details Amniotic Membrane Status: AROM Amniotic Membrane Rupture Date: 11/28/24 Amniotic Membrane Rupture Time: 21:34 Amniotic Membrane Fluid Description: Clear Analgesia/Anesthesia Type: Epidural Waterbirth: No Pitcoin: Yes (Max 20 mu; AMTSL) Intrapartal Events: ROM >18 Hours Labor Onset: 11:30 Complete: 16:34 Pushin:02 Heart: heart tones during second stage were reassuring with intermittent decelerations during contractions and return to baseline between. More variable decelerations noted at time of crowing, may have been exacerbated by FSE placement but delivery was imminent. Delivery Details Delivery Date: 11/29/24 Delivery Time: 17:52 Route of delivery: Infant Gender: Male Viability: Alive; Heart Rate Present Position at Delivery: OA Delivery Details: Patient was admitted for induction of labor for cholestasis. She received 2 doses of cytotec before AROM and pitocin and progressed slowly in active labor to complete. AROM last evening, 12/29/24, at 2134 with clear fluid. She progressed with continued pitocin titration to reach adequate MVU's. Patient was complete at 1634 and pushing at 1702. of a viable male at 1752 in left tilt semi-reclined position on the bed. Vertex delivered OA. No nuchal cord or shoulder. Body delivered easily and without incident. Infant passed to mothers abdomen with a vigorous cry. Cord was clamped and cut at > 5 minutes. APGARS were 8 at one minute and 9 at five minutes respectively. Mouth was bulb suctioned. Intact placenta with a 3 vessel cord delivered spontaneously at 1801. Placenta to pathology due to cholestasis. Fundus firm. Small perineal abrasion identified, no repair indicated. QBL 100 cc. Mother and baby stable; mother plans to breastfeed. Infant weight pending. 1 Minute Interval Total Score: 8 5 Minute Interval Total Score: 9 Additional Details Shoulder Dystocia: No Placenta Delivery Time: 18:01 Placental Delivery Description: Spontaneous Procedure Done: Global Blood Loss: 100 Laceration: None (small abrasion, no repair) Blood Loss Measurement Type: QBL Bakri Used: No Sponge/Need Count Correct: Yes Cord Vessel Description: 3 Vessels Event Summary Status: Mother and infant were stable after delivery. Disposition: floor
[2024-11-30 00:47] VITALS: BP 118/78; PULSE 79; RESP 18; TEMP 37.1; O2SAT 98
[2024-11-30 03:45] VITALS: BP 95/68; PULSE 71; RESP 18; TEMP 36.8; O2SAT 97
[2024-11-30 06:32] LABS: Hemoglobin* 10.3 gm/dL (12.0-16.0)
--- NOTE | 2024-11-30 07:22 | PM.OBPNVD1 ---
OB - PN:Subj Subjective Date Seen: 11/30/24 Interval history: The patient feels well.?Itching has improved and almost gone. Last Bile salts were 17 on 11/25/2024. The pain is well controlled with current medications.? She has no new complaints.? Urinary output is adequate and she is voiding without difficulty.?Has a good appetite, is tolerating a general diet, is passing flatus, and has had a bowel movement.? Has scant amount of rubra lochia.? She is ambulating well. She is pumping and bottle feeding and reports it is going well.?She has not gotten any colostrum yet so the baby has received formula. OB - PN: Obj Exam Physical Exam: Vital signs: Temp Pulse Resp BP Pulse Ox O2 Del Method 98.2 F 71 18 95/68 97 Room Air 11/30/24 03:45 11/30/24 03:45 11/30/24 03:45 11/30/24 03:45 11/30/24 03:45 11/30/24 03:45 Narrative: GENERAL APPEARANCE:? normal affect, alert, no distress MOOD:? appropriate CHEST:? clear to auscultation HEART:? regular rate and rhythm ABDOMEN:? soft, non-tender the uterine fundus is At Umbilicus, Midline and is appropriate for the stage of recovery. EXTREMITIES:? normal and minimal edema, non-tender OB - PN: Obj Data Labs Labs: Laboratory Results - last 24 hr 11/30/24 06:08 Hgb 10.3 L OB - PN: A/P Delivery Assessment and Plan (1) (normal spontaneous vaginal delivery): Status: Acute (2) care and examination of lactating mother: Status: Acute (3) Intrahepatic cholestasis of : Status: Acute (4) Encounter for induction of labor: Status: Resolved (5) Morbid obesity with body mass index (BMI) of 40.0 or higher: Status: Acute (6) Panic attacks: Status: Acute (7) Chronic major depressive disorder: Status: Acute (8) Chronic anxiety: Status: Acute Plan Continue routine cares. Anticipate discharge 12/01/2024. Continue /pumping support HGB 10.3
[2024-11-30 08:53] VITALS: BP 91/59; PULSE 73; RESP 18; O2SAT 96
[2024-11-30] MEDS: IBUPROFEN 600 MG TABLET PO (08:58)
[2024-11-30] MEDS: DOCUSATE SODIUM 100 MG CAPSULE PO (08:58)
--- NOTE | 2024-11-30 09:22 | PM.ANPOST ---
Post Anesthesia Note Post Anesthesia Note Patient seen: Inpatient Respiratory Status: adequate Cardiovascular Status: adequate Mental Status: baseline Pain: adequate Temp: baseline Anesthetic awareness: N/A Complications: none Follow care: none
[2024-11-30 12:42] VITALS: BP 106/74; PULSE 70; RESP 16; TEMP 36.8; O2SAT 99
[2024-11-30 17:05] VITALS: BP 104/69; PULSE 74; RESP 16; TEMP 36.8; O2SAT 97
[2024-11-30] MEDS: ACETAMINOPHEN 500 MG TABLET 1000 MG PO (17:58)
[2024-11-30 22:01] VITALS: BP 107/77; PULSE 71; RESP 16; TEMP 36.8; O2SAT 98
[2024-12-01] MEDS: ACETAMINOPHEN 500 MG TABLET 1000 MG PO ×2 (00:33→09:25)
[2024-12-01 04:53] VITALS: BP 106/71; PULSE 66; RESP 16; TEMP 36.9; O2SAT 98
--- NOTE | 2024-12-01 07:58 | P.DS_ITS ---
DS: Providers Provider Date Seen: 12/01/24 Date of admission: 11/28/24 11:13 Primary care physician: Katey Jacinto PA-C Admitting Clinician: Sapphire Dior CNM Attending Physician on discharge: Sapphire Dior CNM Date of Discharge: 12/01/24 DS: Diagnosis Discharge Diagnosis (1) care and examination of lactating mother: Status: Acute (2) (normal spontaneous vaginal delivery): Status: Acute Exam Narrative: Exam Narrative: VSS, afebrile GENERAL APPEARANCE: ?normal affect, alert, no distress MOOD: ?appropriate HEENT: normocephalic, neck supple, full ROM CHEST: ?Symmetrical chest wall movement. ?Normal respiratory effort. ?Clear to auscultation HEART: ?regular rate and rhythm ABDOMEN: ?soft, non-tender. Uterine fundus is firm, at Umbilicus, Midline and is appropriate for the stage of recovery. ?Bowel sounds present. PERINEUM: ?mild edema of the perineum, intact. EXTREMITIES: ?normal and trace edema Const: Vital Signs, click to edit/add: Vital Signs - 24 hr 11/30/24 08:53 11/30/24 12:42 11/30/24 17:05 Temperature 98.2 F 98.2 F Pulse Rate [Pulse Oximeter] 73 70 74 Respiratory Rate 18 16 16 Blood Pressure [Le ft Arm] 91/59 L 106/74 104/69 Pulse Oximetry 96 99 97 Oxygen Delivery Me thod Room Air Room Air 11/30/24 22:01 12/01/24 04:53 Temperature 98.2 F 98.4 F Pulse Rate [Pulse Oximeter] 71 66 Respiratory Rate 16 16 Blood Pressure [Le ft Arm] 107/77 106/71 Pulse Oximetry 98 98 Oxygen Delivery Me thod Room Air Room Air Documenting provider has reviewed patient's vital signs: yes OB - DS: Summary Hospital Course Hospital Course: Naina is a 23 y.o. who was admitted to [facility] for induction of labor for ICP. ?She had an uncomplicated NVD.?The patient feels well. ?The pain is well controlled with current medications. ?She has no new complaints. ?She is pumping and bottling and has been supplementing with formula as she has not gotten much colostrum yet. the patient has done well.? Vitals have been stable.? She has remained afebrile.? Has a good appetite, is tolerating a general diet. ?She is voiding without difficulty.? She is passing gas and has not had a bowel movement.? She is ambulating and denies any dizziness.? Has Small amount of rubra lochia. ?She is planning IUD for prevention. Peripartum Data delivery method: Vaginal Laceration description: None complications: none Infant Gender: Male Infant Discharge Plan: Home Status at Discharge Functional status at discharge: independent ambulation Overall status at discharge: patient is progressing back to baseline Time Spent with Patient Time attestation: Total time spent providing and/or coordinating discharge services: Time spent: Less than 30 minutes Discharge Plan Discharge Disposition: Home, Self-Care Date of Admission: 11/28/24 11:13 Attending Provider on Discharge: Sapphire Dior Primary Care Provider: Katey Jacinto Condition: Stable Anticipated Discharge Date/Time: 12/01/24 12:00 Discharge Medications: New acetaminophen 500 mg Tablet 1,000 mg PO Q6H PRNQty: 0 0RF docusate sodium 100 mg Capsule 100 mg PO DAILY Qty: 90 0RF ibuprofen 600 mg Tablet 600 mg PO Q6H PRNQty: 60 0RF Continued One-A-Day -1 27 mg iron- 800 mcg-235 mg capsule 1 cap PO DAILY Discontinued aspirin 81 mg capsule 81 mg PO QDAY Discharge Orders: Discharge Order (Routine); Ordered 12/01/24 Ordered By: Sapphire Dior Patient Education: OB Over the Counter Medication Information, OB Vaginal/Breast Feeding Additional Instructions: Discharge instructions were reviewed with the patient including signs and symptoms of infection and home going medications Nothing vaginally for 6 weeks: no tampons or intercourse Off Work or School for 6 weeks Symptoms to report to doctor: * Bleeding that saturates more than one pad per hour * Passing clots larger than the size of a golf ball * Pain not relieved by prescribed medication * Fever above 100.4 degrees Fahrenheit * A foul vaginal odor * Difficulty in emotions, mood, and functions * Thoughts of hurting yourself and/or * Painful, reddened area in your breast * Any drainage, redness, or tenderness in your IV/epidural site * Severe headache that doesn't improve after taking medications * Changes in vision, including temporary loss of vision, blurred vision, and/or light sensitivity * Upper abdominal pain (usually under ribs on the right side) * Decrease in urination or painful, frequent urinating * Chest pain * Shortness of breath * Tenderness or pain with redness and/swelling in the calf(s) of your leg 2-week visit: discuss infant feeding concerns, review control options and screen for anxiety/depression. 6-week visit for an annual exam. consultation services are available to all mothers and babies for the first year after delivery.? To make an appointment, please call [phone]. Activity Level: Activity as Tolerated Discharge Diet: Regular Follow Up Appointments: [facility] [Provider Group] Forms: [facility] Info Instructions
[2024-12-01 09:20] VITALS: BP 96/65; PULSE 66; RESP 16; TEMP 36.9; O2SAT 99
[2024-12-01] MEDS: DOCUSATE SODIUM 100 MG CAPSULE PO (09:25)
[2024-12-01] MEDS: MEASLES,MUMPS,RUBELLA VACC/PF 1 DOSE INJ 1 EACH SUBCUT (09:25)
[2024-12-01 10:36] LABS: Rapid Plasma Reagin (RPR) Non Reactive (Non Reactive)
== END 2024-12-01 12:15 | disposition home or self-care (01) | DRG 560 ==
PROVIDERS: Advanced Practice Midwife; Admitting Provider Advanced Practice Midwife; PCP Physician Assistant Medical; Visit Provider Advanced Practice Midwife
DX: O26.643 Intrahepatic cholestasis of pregnancy, third trimester (principal); K83.1 Obstruction of bile duct; O99.214 Obesity complicating childbirth; E66.01 Morbid (severe) obesity due to excess calories; O99.344 Other mental disorders complicating childbirth; F41.9 Anxiety disorder, unspecified; F32.9 Major depressive disorder, single episode, unspecified; F41.0 Panic disorder [episodic paroxysmal anxiety]; O26.893 Other specified pregnancy related conditions, third trimester; L29.81 Cholestatic pruritus; Z37.0 Single live birth; Z3A.37 37 weeks gestation of pregnancy
CPT/HCPCS: 01967; 36415; 59200; 76815; 85018; 85025; 86592; 86850; 86900; 86901; 88307; A9270; J0665; J2371; J2795; J7120

== ENCOUNTER 2025-01-11 13:02 | Outpatient (CLI) | payer MEDICAID, SELFPAY | END 2025-01-11 13:03 | disposition home or self-care (01) | PROVIDERS: PCP Physician Assistant Medical; Visit Provider Advanced Practice Midwife | DX: Z12.4 Encounter for screening for malignant neoplasm of cervix (principal); Z39.2 Encounter for routine postpartum follow-up | CPT/HCPCS: 87624; 87625; 88141; 88142 ==

== ENCOUNTER 2025-07-05 19:33 | Emergency (ER) | payer BC, SELFPAY ==
[2025-07-05 19:53] VITALS: BP 115/79; PULSE 101; RESP 16; TEMP 36.6; O2SAT 99; BMI 49.6
[2025-07-05 20:08] LABS: Appearance Urine Clear (Clear)
[2025-07-05 20:23] LABS: Ur HCG Qualitative* Negative (Negative)
[2025-07-05 20:53] LABS: Lactate* 1.1 mmol/L (0.5-1.9)
[2025-07-05 20:55] LABS: Hematocrit 36.9 % (33.0-51.0); Hemoglobin* 12.6 gm/dL (12.0-16.0); Immature Granulocytes Abs Auto 0.03 K/uL (0.00-0.30); Immature Granulocytes Pct Auto 0.3 %; Mean Corpuscular HGB Conc 34 gm/dL (32-36); Mean Corpuscular Hemoglobin 29 pg (26-34); Mean Corpuscular Volume 85 fL (80-100); RDW Coefficient of Variation % 12.2 % (11.5-15.5); Red Blood Count 4.35 m/uL (4.00-5.20); White Blood Count* 10.22 K/uL (4.50-11.00)
--- NOTE | 2025-07-05 20:56 | CRLHL7_ITS ---
For Patients: As a result of the Century Cures Act, medical imaging exams and procedure reports are released immediately into your electronic medical record. You may view this report before your referring provider. If you have questions, please contact your health care provider. INDICATION: Right upper quadrant pain. TECHNIQUE: CT abdomen and pelvis acquired with 100 cc Omnipaque 350 IV contrast. COMPARISON: January 20, 2018.. FINDINGS: Lower chest: Unremarkable. Liver: Unremarkable. Normal in size and attenuation. No suspicious masses. Gallbladder and bile ducts: Unremarkable. No stones or inflammation. No biliary dilatation. Pancreas: Unremarkable. No mass or inflammation. Spleen: Unremarkable. Normal in size. No masses. Adrenal glands: Unremarkable. No nodules. Kidneys: Unremarkable. No suspicious masses, stones, or hydronephrosis. GI tract: Mild colonic diverticulosis. Normal in caliber. No sign of mass or inflammation. Normal appendix. Vasculature: Abdominal aorta is normal in caliber. Mesenteric arteries are patent. Lymph nodes: No lymphadenopathy. Peritoneum/Abdominal Wall: Unremarkable. No sign of mass or infiltration. No free air or significant free fluid. Pelvis: Unremarkable. Bones: Unremarkable for age. IMPRESSION: No acute intra-abdominal/pelvic abnormality. Please note that all CT scans at this facility use dose modulation, iterative reconstruction, and/or weight-based dosing when appropriate to reduce radiation dose to as low as reasonably achievable. Dictated by Harpal Beltrán MD @ 07/05/2025 9:34:43 PM (Electronically Signed)
[2025-07-05 20:58] LABS: Lymphocytes Absolute Auto 1.40 K/uL (0.90-2.90); Slide Review Reflex No
[2025-07-05] MEDS: ONDANSETRON 2 MG/ML inj 4 MG IVP (20:59)
[2025-07-05 21:12] LABS: Albumin* 4.0 g/dL (3.3-5.0); Chloride* 104 mmol/L (96-114)
[2025-07-05 21:13] LABS: Potassium* 3.6 mmol/L (3.6-5.1); Sodium* 139 mmol/L (135-149)
[2025-07-05 21:15] LABS: Blood Urea Nitrogen* 12 mg/dL (5-24); Creatinine* 0.7 mg/dL (0.5-1.5); Est. Creatinine Clearance* 102.51; Estimated Glomerular Filt Rate 124 ml/min
[2025-07-05 21:16] LABS: Alanine Aminotransferase* 27 U/L (4-35); Alkaline Phosphatase* 74 U/L (40-150); Anion Gap 5 mEq/L (7-15); Aspartate Amino Transferase* 34 U/L (12-35); Bilirubin Direct* 0.2 mg/dL (0.0-0.5); Bilirubin Total* 0.3 mg/dL (0.1-1.5); Calcium* 9.2 mg/dL (8.4-10.6); Carbon Dioxide* 30 mmol/L (20-32); Glucose* 114 mg/dL (60-115); Total Protein* 7.0 g/dL (6.0-8.3)
[2025-07-05 21:38] LABS: Procalcitonin* < 0.03 ng/mL (<0.50)
--- NOTE | 2025-07-05 21:49 | ED.ABDPAIN ---
HPI - Abdominal Pain General Date Seen: 07/05/25 Chief Complaint: Abdominal Pain Stated Complaint: having hard time breathing/ stomach hurts Time Seen by Provider: 07/05/25 20:01 Source: patient and family Mode of arrival: ambulatory Limitations: no limitations History of Present Illness HPI narrative: Patient is a 24-year-old female who presents here with epigastric right upper quadrant pain, abdominal pain on off for the last week, approximately an hour ago the pain worsened, goes to the back, associated with nausea but has not vomited, also has diarrhea, seems pain seems to worsen least the last couple days with eating. Has not taken any [id number] medications, the pain increases with movement and deep breathing. She denies any shortness of breath associated with this other than the from the pain. No leg swelling, initially no diarrhea, no blood in the stools. No dysuria frequency. No previous history of surgeries, 1 previous vaginal delivery. Denies being . MD elicited complaint: abdominal pain Exacerbating factors: nothing Relieving factors: nothing Associated symptoms: nausea Related Data Patient : No Home Medications ?Medication ?Instructions ?Recorded ?Confirmed No Known Home Medications 07/05/25 07/05/25 Allergies Allergy/AdvReac Type Severity Reaction Status Date / Time No Known Allergies Allergy Unknown Verified 01/11/25 11:31 Review of Systems Status of ROS Reports: 10 or more systems reviewed and unremarkable except as noted in History and below [facility] Medical History Morbid obesity with body mass index (BMI) of 40.0 or higher ?E66.01 - Morbid (severe) obesity due to excess calories (ICD-10) (normal spontaneous vaginal delivery) ?O80 - Encounter for full-term uncomplicated delivery (ICD-10) Acanthosis nigricans ?L83 - Acanthosis nigricans (ICD-10) Chronic anxiety ?F41.9 - Anxiety disorder, unspecified (ICD-10) Chronic major depressive disorder ?F32.9 - Major depressive disorder, single episode, unspecified (ICD-10) Irregular menstrual cycle ?N92.6 - Irregular menstruation, unspecified (ICD-10) Polycystic ovary syndrome ?E28.2 - Polycystic ovarian syndrome (ICD-10) Vitamin D deficiency ?E55.9 - Vitamin D deficiency, unspecified (ICD-10) Tenosynovitis of both wrists ?M65.9 - Synovitis and tenosynovitis, unspecified (ICD-10) De Quervain's tenosynovitis, bilateral ?M65.4 - Radial styloid tenosynovitis [de Quervain] (ICD-10) Panic attacks ?F41.0 - Panic disorder [episodic paroxysmal anxiety] (ICD-10) Intrahepatic cholestasis of ?O26.649 - Intrahepatic cholestasis of , unspecified trimester (ICD-10) Obesity affecting ?O99.210 - Obesity complicating , unspecified trimester (ICD-10) Viral upper respiratory tract infection ?J06.9 - Acute upper respiratory infection, unspecified (ICD-10) Upper respiratory infection ?J06.9 - Acute upper respiratory infection, unspecified (ICD-10) Sore throat ?J02.9 - Acute pharyngitis, unspecified (ICD-10) Pleurisy ?R09.1 - Pleurisy (ICD-10) High ankle sprain of left lower extremity ?S93.492A - Sprain of other ligament of left ankle, initial encounter (ICD-10) Benign paroxysmal positional vertigo ?H81.10 - Benign paroxysmal vertigo, unspecified ear (ICD-10) Surgical History No history of previous surgery Family History Mother Diabetes Maternal Grandmother Diabetes Brother Cerebral palsy Sister Asthma Social History Narrative: Does not drink alcohol Non-smoker SOCIAL? ? Education: Associate's degree currently in school? ? 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 ? Partner: Stanley? boyfriend works security? Lives with: lives with her parents? ? Pets: 4 dogs? ? Abuse: Denies past ? Unable to assess current, partner present? ? Special Diet: Denies? ? Ok with a blood transfusion: yes? ? Culture or buddhist beliefs: denies? RISK FACTORS? ? Exercise Times/wk: gym 5x weeks, not now walking 2 miles a day? ? Depression/Anxiety: both? ? Previous Treatments , exercising was working well for her to manage no meds at this time ? Therapy , as a child Seat Belt Use: Routinely ? Smoking: Denies past/present? ? Alcohol/day: Denies while ? ?twice a month one cocktail when not Caffeine: energy drinks before has cut these out Drug Use: Denies past/present? What is your current living situation?: I presently have a place to live Problems where you live: no known problems In the past 12 months, utilities in danger of being shut off: no In past 12 months, lack of transportation kept you from medical appts, meetings, work, or getting things needed for daily living: no In the past 12 mos, have been you worried that your food would run out before you had money to buy more?: never true In the past 12 mos, the food you bought just didn't last and you didn't have money to buy more?: never true Smoking Status: Never smoker Second hand tobacco smoke exposure: No How often do you have a drink containing alcohol: never AUDIT-C Alcohol total score: 0 Non-prescribed substance use: denies use How often does anyone, including family, friends and others, physically hurt you: never How often does anyone, including family, friends and others, insult or talk down to you: never How often does anyone, including family, friends and others, threaten you with harm: never How often does anyone, including family, friends and others, scream or curse at you: never service: No Exam Narrative: Exam Narrative: On examination in room 6 she is in no apparent distress she is pleasant and alert, examination use no scleral icterus no redness, nontoxic TMs are normal oropharynx is normal, neck is supple no meningismus, chest is good air entry bilateral with no wheezing crackles noted there is no splinting heart sounds are normal her abdomen shows tenderness in the right upper quadrant and a positive Genao sign there is no peritoneal signs, no rebound tenderness and bowel sounds are normal the lower quadrants. No CVA tenderness is noted, she moves all extremities independently and well. Const: Vital Signs, click to edit/add: Vital Signs - 24 hr 07/05/25 19:53 07/05/25 22:46 Temperature 98 F 96.9 F L Pulse Rate [Pulse Oximeter] 101 H 77 Respiratory Rate 16 16 Blood Pressure [Ri ght Upper Arm] 115/79 107/61 Pulse Oximetry 99 97 Oxygen Delivery Me thod Room Air Room Air Documenting provider has reviewed patient's vital signs: yes Course Vital Signs Vital signs: Initial Vital Signs Temperature 98 F 07/05/25 19:53 Temperature Source Temporal Artery Scan 07/05/25 19:53 Pulse Rate 101 H 07/05/25 19:53 Respiratory Rate 16 07/05/25 19:53 Blood Pressure 115/79 07/05/25 19:53 Blood Pressure Mean 91 07/05/25 19:53 Blood Pressure Position Sitting 07/05/25 19:53 Pulse Oximetry 99 07/05/25 19:53 Oxygen Delivery Method Room Air 07/05/25 19:53 Vital Signs Temperature 98 F 07/05/25 19:53 Pulse Rate 101 H 07/05/25 19:53 Respiratory Rate 16 07/05/25 19:53 Blood Pressure 115/79 07/05/25 19:53 Pulse Oximetry 99 07/05/25 19:53 Oxygen Delivery Method Room Air 07/05/25 19:53 Temperature 96.9 F L 07/05/25 22:46 Pulse Rate 77 07/05/25 22:46 Respiratory Rate 16 07/05/25 22:46 Blood Pressure 107/61 07/05/25 22:46 Pulse Oximetry 97 07/05/25 22:46 Oxygen Delivery Method Room Air 07/05/25 22:46 Medications Administered Medications: Discontinued Medications Generic Name Dose Route Start Last Admin Trade Name Freq PRN Reason Stop Dose Admin Hydromorphone HCl 0.5 mg 07/05/25 20:15 07/05/25 21:18 Hydromorphone 0.5 Mg/0.5 Ml Inj IVP 07/05/25 20:16 Not Given ONCE ONE Sodium Chloride 1,000 mls @ 1,000 mls/hr 07/05/25 20:15 07/05/25 21:57 0.9 % Sodium Chloride 1000 Ml IV 07/05/25 21:14 Infused .Q1H WILDA Infusion Ketorolac Tromethamine 30 mg 07/05/25 20:15 07/05/25 21:01 Ketorolac 30 Mg/Ml Inj IVP 07/05/25 20:16 30 mg ONCE ONE Administration Ondansetron HCl 4 mg 07/05/25 20:15 07/05/25 20:59 Ondansetron 2 Mg/Ml Inj IVP 07/05/25 20:16 4 mg ONCE ONE Administration MDM - Abdominal Pain MDM Narrative Medical decision making narrative: During the evaluation of this patient I considered multiple differential diagnosis including life-threatening differentials which are appendicitis, aortic aneurysm, mesenteric ischemia, bowel perforation, ectopic , volvulus and bowel obstruction, other differential diagnosis include but are not limited to inflammatory bowel disease, cholecystitis, pancreatitis, hepatitis, gastritis, GERD, diverticulitis, peptic ulcer disease, pyelonephritis/UTI, renal colic/stone, pelvic inflammatory disease, cervicitis, endometritis, intrauterine , dysfunctional uterine bleeding, ovarian cyst/torsion, spontaneous as well as other etiologies Lab Data Labs: Lab Results 07/05/25 07/05/25 Range/Units 20:00 20:46 WBC 10.22 (4.50-11.00) K/uL RBC 4.35 (4.00-5.20) m/uL Hgb 12.6 (12.0-16.0) gm/dL Hct 36.9 (33.0-51.0) % MCV 85 (80-100) fL MCH 29 (26-34) pg MCHC 34 (32-36) gm/dL RDW Coeff of Stuart 12.2 (11.5-15.5) % Plt Count 230 (140-440) K/uL Neut % (Auto) 80.2 H (42.0-72.0) % Lymph % (Auto) 13.5 L (20-44) % [place] % (Auto) 5.5 (0.0-11.0) % Eos % (Auto) 0.3 (0.0-7.0) % Baso % (Auto) 0.2 (0.0-3.0) % Neut # (Auto) 8.20 H (1.7-7.0) K/uL Lymph # (Auto) 1.40 (0.90-2.90) K/uL [place] # (Auto) 0.60 (0.00-0.90) K/UL Eos # (Auto) 0.03 (0.00-0.50) K/uL Baso # (Auto) 0.02 (0.00-0.30) K/uL Abs Immat Gran (auto) 0.03 (0.00-0.30) K/uL Imm/Tot Granulo (auto) 0.3 % Sodium 139 (135-149) mmol/L Potassium 3.6 (3.6-5.1) mmol/L Chloride 104 (96-114) mmol/L Carbon Dioxide 30 (20-32) mmol/L Anion Gap 5 L (7-15) mEq/L BUN 12 (5-24) mg/dL Creatinine 0.7 (0.5-1.5) mg/dL Estimated Creat Clear 102.51 Estimated GFR 124 ml/min Glucose 114 (60-115) mg/dL Lactate 1.1 (0.5-1.9) mmol/L Calcium 9.2 (8.4-10.6) mg/dL Total Bilirubin 0.3 (0.1-1.5) mg/dL Direct Bilirubin 0.2 (0.0-0.5) mg/dL AST 34 (12-35) U/L ALT 27 (4-35) U/L Alkaline Phosphatase 74 (40-150) U/L C-Reactive Protein 1.2 H (0.5-1.0) mg/dL Total Protein 7.0 (6.0-8.3) g/dL Albumin 4.0 (3.3-5.0) g/dL Amylase 62 (18-89) U/L Lipase 109 (23-300) U/L Procalcitonin < 0.03 L (<0.50) ng/mL Urine Color Yellow (Yellow) Urine Appearance Clear (Clear) Urine pH 5.5 (5.0-8.5) Ur Specific Wilkinson >= 1.030 (1.000-1.030) Urine Protein Trace A (Negative) Urine Glucose (UA) Negative (Negative) Urine Ketones 1+ A (Negative) Urine Blood Negative (Negative) Urine Nitrite Negative (Negative) Urine Bilirubin 1+ A (Negative) Urine Urobilinogen 0.2 (0.2-1.0) Ur Leukocyte Esterase Negative (Negative) Urine RBC 0-2 (0-2) Urine WBC 0-2 (0-5) Ur Squamous Epith Cells Few (None-Few) Urine Bacteria None (None) Urine HCG, Qual Negative (Negative) Discharge Plan Discharge Clinical Impression: Biliary colic, Cholelithiasis Patient Disposition: Home, Self-Care Condition: Improved Instructions: Cholecystitis (ED), Biliary Colic (ED), Gallstones (ED), Laparoscopic Cholecystectomy (DC) Additional Instructions: Home rest low-fat diet, I gave you a small supply of a narcotic medication you may take if you have another attack, if this fails to take away your discomfort, you have repeated vomiting pain, fevers chills, or you get yellowing of your eyes he need to come back to the emergency room. I would like you to follow-up with surgery to discuss this, Activity Level: Light activity Discharge Diet: Low Fat/Low Cholesterol Prescriptions: No Action No Known Home Medications Follow Up/Referrals: Jenelle Puente MD [Staff Physician, General Surgery] Provider,Not a Local [Primary Care Provider, Family Practice] Stand Alone Forms: [facility] Info Instructions
--- NOTE | 2025-07-05 22:33 | CRLHL7_ITS ---
For Patients: As a result of the Century Cures Act, medical imaging exams and procedure reports are released immediately into your electronic medical record. You may view this report before your referring provider. If you have questions, please contact your health care provider. INDICATION: Right upper quadrant abdominal pain, abdominal pain TECHNIQUE: Ultrasound abdomen limited. Sonographic images of the right upper quadrant were obtained using castro-scale and color Doppler images. COMPARISON: 07/05/2025 FINDINGS: Liver: The liver parenchyma is normal in echotexture. Gallbladder: There is an echogenic focus near the gallbladder neck which may represent a small gallstone. The gallbladder wall is normal in appearance. No pericholecystic fluid is present. No sonographic Genao???s sign is present. Common bile duct: 3 mm. No intrahepatic biliary ductal dilatation seen. Pancreas: The visualized portions of the pancreatic head and body are normal in appearance. Right Kidney: 10.4 cm. No hydronephrosis or ureterectasis is seen. Vascular: The visualized abdominal aorta and IVC are unremarkable. The visualized portal vein is patent with normal anterograde flow. IMPRESSION: 1. There is an echogenic focus near the gallbladder neck which may represent a small gallstone. Dictated by Marco A Caruso MD @ 07/06/2025 12:29:36 AM Dictated by: Marco A Caruso MD @ 07/06/2025 00:29:40 (Electronically Signed)
[2025-07-05 22:46] VITALS: BP 107/61; PULSE 77; RESP 16; TEMP 36.1; O2SAT 97
== END 2025-07-06 01:04 | disposition home or self-care (01) ==
PROVIDERS: Emergency Provider Family Medicine
DX: K80.20 Calculus of gallbladder without cholecystitis without obstruction (principal); K80.51 Calculus of bile duct without cholangitis or cholecystitis with obstruction
CPT/HCPCS: 36415; 74177; 76705; 80048; 80076; 81001; 81025; 82150; 83605; 83690; 84145; 85025; 86140; 94761; 96374; 96375; 99284; J1885; J2405; J7030; Q9967

== ENCOUNTER 2025-07-22 20:05 | Emergency (ER) | payer BC, SELFPAY ==
[2025-07-22 20:11] VITALS: BP 122/76; PULSE 79; RESP 20; TEMP 36.7; O2SAT 99; BMI 49.6
--- NOTE | 2025-07-22 20:15 | ED.ABDPAIN ---
HPI - Abdominal Pain General Time Seen by Provider: 20:15 Date Seen: 07/22/25 Chief Complaint: Abdominal Pain Stated Complaint: back pain possible gallstones Time Seen by Provider: 07/22/25 20:09 Source: patient, RN notes reviewed and old records reviewed Mode of arrival: ambulatory Limitations: no limitations History of Present Illness HPI narrative: This 24-year-old female is coming in with epigastric to right upper quadrant abdominal pain radiating into her back. She vomited once prior to coming in. She states she knows she has gallstones. She states she was in a few weeks ago and was diagnosed with gallstones. This pain started about an hour after eating, is been present about an hour and a half. It is severe for her. She has not noticed any fevers. She denies any intermittent issues with eating since she was last seen. She was evaluated on July 05 for epigastric and upper abdominal pain that had been present on and off for weak. She complained at that time that there was some pain that been progressive over week and a half associated with eating. She had a CT of her abdomen pelvis showing no acute pathology. Ultrasound from that visit showed an echogenic focus near the gallbladder neck which may represent a small gallstone. Her white blood count was normal, comprehensive metabolic panel normal, negative amylase and lipase, C reactive protein just mildly up at 1.2. Patient denies any chance for . Is known to have polycystic ovarian syndrome. Did have delivery earlier in the year. She did have cholestasis in per her report. MD elicited complaint: abdominal pain Related Data Home Medications ?Medication ?Instructions ?Recorded ?Confirmed No Known Home Medications 07/05/25 07/05/25 Allergies Allergy/AdvReac Type Severity Reaction Status Date / Time No Known Allergies Allergy Unknown Verified 01/11/25 11:31 Review of Systems Status of ROS Reports: 6 or more systems reviewed and unremarkable except as noted in History and below [facility] Medical History Morbid obesity with body mass index (BMI) of 40.0 or higher ?E66.01 - Morbid (severe) obesity due to excess calories (ICD-10) (normal spontaneous vaginal delivery) ?O80 - Encounter for full-term uncomplicated delivery (ICD-10) Acanthosis nigricans ?L83 - Acanthosis nigricans (ICD-10) Chronic anxiety ?F41.9 - Anxiety disorder, unspecified (ICD-10) Chronic major depressive disorder ?F32.9 - Major depressive disorder, single episode, unspecified (ICD-10) Irregular menstrual cycle ?N92.6 - Irregular menstruation, unspecified (ICD-10) Polycystic ovary syndrome ?E28.2 - Polycystic ovarian syndrome (ICD-10) Vitamin D deficiency ?E55.9 - Vitamin D deficiency, unspecified (ICD-10) Tenosynovitis of both wrists ?M65.9 - Synovitis and tenosynovitis, unspecified (ICD-10) De Quervain's tenosynovitis, bilateral ?M65.4 - Radial styloid tenosynovitis [de Quervain] (ICD-10) Panic attacks ?F41.0 - Panic disorder [episodic paroxysmal anxiety] (ICD-10) Intrahepatic cholestasis of ?O26.649 - Intrahepatic cholestasis of , unspecified trimester (ICD-10) Obesity affecting ?O99.210 - Obesity complicating , unspecified trimester (ICD-10) Viral upper respiratory tract infection ?J06.9 - Acute upper respiratory infection, unspecified (ICD-10) Upper respiratory infection ?J06.9 - Acute upper respiratory infection, unspecified (ICD-10) Sore throat ?J02.9 - Acute pharyngitis, unspecified (ICD-10) Pleurisy ?R09.1 - Pleurisy (ICD-10) High ankle sprain of left lower extremity ?S93.492A - Sprain of other ligament of left ankle, initial encounter (ICD-10) Benign paroxysmal positional vertigo ?H81.10 - Benign paroxysmal vertigo, unspecified ear (ICD-10) Surgical History No history of previous surgery Family History Mother Diabetes Maternal Grandmother Diabetes Brother Cerebral palsy Sister Asthma Social History Narrative: Does not drink alcohol Non-smoker SOCIAL? ? Education: Associate's degree currently in school? ? 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 ? Partner: Stanley? boyfriend works security? Lives with: lives with her parents? ? Pets: 4 dogs? ? Abuse: Denies past ? Unable to assess current, partner present? ? Special Diet: Denies? ? Ok with a blood transfusion: yes? ? Culture or amish beliefs: denies? RISK FACTORS? ? Exercise Times/wk: gym 5x weeks, not now walking 2 miles a day? ? Depression/Anxiety: both? ? Previous Treatments , exercising was working well for her to manage no meds at this time ? Therapy , as a child Seat Belt Use: Routinely ? Smoking: Denies past/present? ? Alcohol/day: Denies while ? ?twice a month one cocktail when not Caffeine: energy drinks before has cut these out Drug Use: Denies past/present? What is your current living situation?: I presently have a place to live Problems where you live: no known problems In the past 12 months, utilities in danger of being shut off: no In past 12 months, lack of transportation kept you from medical appts, meetings, work, or getting things needed for daily living: no In the past 12 mos, have been you worried that your food would run out before you had money to buy more?: never true In the past 12 mos, the food you bought just didn't last and you didn't have money to buy more?: never true Smoking Status: Never smoker Second hand tobacco smoke exposure: No How often do you have a drink containing alcohol: never AUDIT-C Alcohol total score: 0 Non-prescribed substance use: denies use How often does anyone, including family, friends and others, physically hurt you: never How often does anyone, including family, friends and others, insult or talk down to you: never How often does anyone, including family, friends and others, threaten you with harm: never How often does anyone, including family, friends and others, scream or curse at you: never service: No Exam Const: Vital Signs, click to edit/add: Vital Signs - 24 hr 07/22/25 20:11 07/22/25 20:22 Temperature 98.0 F Pulse Rate [Right Pulse Oximeter] 79 Respiratory Rate 20 Blood Pressure [Ri ght Upper Arm] 122/76 Pulse Oximetry 99 99 Oxygen Delivery Me thod Room Air This 24-year-old female is alert and interactive but definitely seems uncomfortable. She is hanging onto an emesis bag. Sclera clear, face atraumatic. Speech is normal. Lungs are clear, good air entry, no wheezing crackles, no tachypnea. CV regular rate and rhythm, no murmur, normal S1-S2. Abdomen is obese but soft, not distended, bowel sounds present she has definite epigastric to central right upper quadrant abdominal pain but no rebound or guarding. Do not feel any masses or organomegaly but body habitus may preclude examination of this. She has darker complected but do not appreciate jaundice. Documenting provider has reviewed patient's vital signs: yes Course Course ED Course: Do think patient may be suffering from biliary colic. She has had a recent CT and ultrasound. We need to get labs and see if her lipase is up. Did discuss with her that gallstones rolling through into the ducts can cause pancreatitis for some. For lipase is elevated, she will likely need transfer where she can have an ERCP. In the meantime, have looked in her records and initially tried Toradol without any success last time. It seems as if dilaudid worked. I am just going to go for a dose of Dilaudid, 4 mg of Zofran and IV fluids. May need to consider CT imaging if there is concern on labs for cholecystitis or pancreatitis. Reevaluation(s) Time of Reevaluation #1: 21:07 Reevaluation #1: Patient remains asymptomatic after the single dose of Dilaudid. She had Percocet from her 1st ED visit, was at her mom's house and did not have it with her. She tried ibuprofen before coming but did not help. She does have the Percocet at home and does not need further medicines. She has been trying to eat a low-fat diet, have reviewed this. She did not call the surgery clinic to set up the appointment yet, states she will do so on Friday. We will provide her the number on discharge. She understands signs and symptoms for return. Consultations Consultation #1: Did speak with general surgeon on-call Dr. Puente, she agrees as the history provided to her with patient discharging to home. She believes the patient should easily be able to get in next week to see 1 of them. We will certainly review signs and symptoms for return. Time: 20:56 Vital Signs Vital signs: Initial Vital Signs Temperature 98.0 F 07/22/25 20:11 Temperature Source Temporal Artery Scan 07/22/25 20:11 Pulse Rate 79 07/22/25 20:11 Respiratory Rate 20 07/22/25 20:11 Blood Pressure 122/76 07/22/25 20:11 Blood Pressure Mean 91 07/22/25 20:11 Blood Pressure Position Sitting 07/22/25 20:11 Pulse Oximetry 99 07/22/25 20:11 Oxygen Delivery Method Room Air 07/22/25 20:11 Vital Signs Temperature 98.0 F 07/22/25 20:11 Pulse Rate 79 07/22/25 20:11 Respiratory Rate 20 07/22/25 20:11 Blood Pressure 122/76 07/22/25 20:11 Pulse Oximetry 99 07/22/25 20:11 Oxygen Delivery Method Room Air 07/22/25 20:11 Temperature 98.0 F 07/22/25 20:11 Pulse Rate 79 07/22/25 20:11 Respiratory Rate 07/22/25 20:11 Blood Pressure 122/76 07/22/25 20:11 Pulse Oximetry 99 07/22/25 20:22 Oxygen Delivery Method Room Air 07/22/25 20:11 Medications Administered Medications: Generic Name Dose Route Start Last Admin Trade Name Freq PRN Reason Stop Dose Admin Sodium Chloride 1,000 mls @ 500 mls/hr 07/22/25 20:23 07/22/25 20:37 0.9 % Sodium Chloride 1000 Ml IV 07/22/25 22:22 500 mls/hr .Q2H WILDA Administration Discontinued Medications Generic Name Dose Route Start Last Admin Trade Name Freq PRN Reason Stop Dose Admin Hydromorphone HCl 0.5 mg 07/22/25 20:22 07/22/25 20:28 Hydromorphone 0.5 Mg/0.5 Ml Inj IVP 07/22/25 20:23 0.5 mg ONCE ONE Administration Ondansetron HCl 4 mg 07/22/25 20:22 07/22/25 20:28 Ondansetron 2 Mg/Ml Inj IVP 07/22/25 20:23 4 mg ONCE ONE Administration MDM - Abdominal Pain Lab Data Attestation: I reviewed the patient's lab results. Labs: Lab Results 07/22/25 Range/Units 20:22 WBC 9.47 (4.50-11.00) K/uL RBC 4.67 (4.00-5.20) m/uL Hgb 13.4 (12.0-16.0) gm/dL Hct 39.3 (33.0-51.0) % MCV 84 (80-100) fL MCH 29 (26-34) pg MCHC 34 (32-36) gm/dL RDW Coeff of [place] 12.0 (11.5-15.5) % Plt Count 257 (140-440) K/uL Neut % (Auto) 65.6 (42.0-72.0) % Lymph % (Auto) 27.2 (20-44) % [place] % (Auto) 5.8 (0.0-11.0) % Eos % (Auto) 1.0 (0.0-7.0) % Baso % (Auto) 0.2 (0.0-3.0) % Neut # (Auto) 6.21 (1.7-7.0) K/uL Lymph # (Auto) 2.58 (0.90-2.90) K/uL [place] # (Auto) 0.50 (0.00-0.90) K/UL Eos # (Auto) 0.09 (0.00-0.50) K/uL Baso # (Auto) 0.02 (0.00-0.30) K/uL Abs Immat Gran (auto) 0.02 (0.00-0.30) K/uL Imm/Tot Granulo (auto) 0.2 % Sodium 139 (135-149) mmol/L Potassium 4.1 (3.6-5.1) mmol/L Chloride 104 (96-114) mmol/L Carbon Dioxide 30 (20-32) mmol/L Anion Gap 5 L (7-15) mEq/L BUN 11 (5-24) mg/dL Creatinine 0.7 (0.5-1.5) mg/dL Estimated Creat Clear 102.51 Estimated GFR 124 ml/min Glucose 114 (60-115) mg/dL Lactate 1.2 (0.5-1.9) mmol/L Calcium 9.4 (8.4-10.6) mg/dL Total Bilirubin 0.4 (0.1-1.5) mg/dL Direct Bilirubin 0.3 (0.0-0.5) mg/dL AST 41 H (12-35) U/L ALT 29 (4-35) U/L Alkaline Phosphatase 79 (40-150) U/L C-Reactive Protein 0.6 (0.5-1.0) mg/dL Total Protein 7.5 (6.0-8.3) g/dL Albumin 4.4 (3.3-5.0) g/dL Lipase 123 (23-300) U/L Discharge Plan Discharge Clinical Impression: Biliary colic Patient Disposition: Home, Self-Care Condition: Stable Instructions: Biliary Colic (ED), Gallstones (ED) Additional Instructions: Please call the [facility] to get scheduled with 1 of the general surgeons as soon as possible next week, phone number [phone]. Continue with bland/low-fat diet. Can try the Percocet that you have as prescribed for return of pain. If you are developing severe pain like you had tonight, pain that is not resolving with Percocet, develop fevers with this abdominal pain or ongoing vomiting, do need to return to the ER for further evaluation. Activity Level: Activity as Tolerated Prescriptions: No Action No Known Home Medications Follow Up/Referrals: Provider,Not a Local [Primary Care Provider, [facility]] Stand Alone Forms: [place] Info Instructions
[2025-07-22 20:22] VITALS: O2SAT 99
[2025-07-22] MEDS: ONDANSETRON 2 MG/ML inj 4 MG IVP (20:28)
[2025-07-22 20:33] LABS: Lactate* 1.2 mmol/L (0.5-1.9)
[2025-07-22 20:34] LABS: Hematocrit* 39.3 % (33.0-51.0); Hemoglobin* 13.4 gm/dL (12.0-16.0); Immature Granulocytes Abs Auto 0.02 K/uL (0.00-0.30); Immature Granulocytes Pct Auto 0.2 %; Lymphocytes Absolute Auto 2.58 K/uL (0.90-2.90); Mean Corpuscular HGB Conc 34 gm/dL (32-36); Mean Corpuscular Hemoglobin 29 pg (26-34); Mean Corpuscular Volume 84 fL (80-100); RDW Coefficient of Variation % 12.0 % (11.5-15.5); Red Blood Count* 4.67 m/uL (4.00-5.20); White Blood Count* 9.47 K/uL (4.50-11.00)
[2025-07-22 20:35] LABS: Slide Review Reflex No
[2025-07-22 20:47] LABS: Albumin* 4.4 g/dL (3.3-5.0); Chloride* 104 mmol/L (96-114)
[2025-07-22 20:48] LABS: Potassium* 4.1 mmol/L (3.6-5.1); Sodium* 139 mmol/L (135-149)
[2025-07-22 20:50] LABS: Blood Urea Nitrogen* 11 mg/dL (5-24); Creatinine* 0.7 mg/dL (0.5-1.5); Est. Creatinine Clearance* 102.51; Estimated Glomerular Filt Rate 124 ml/min
[2025-07-22 20:51] LABS: Alanine Aminotransferase* 29 U/L (4-35); Alkaline Phosphatase* 79 U/L (40-150); Anion Gap 5 mEq/L (7-15); Aspartate Amino Transferase* 41 U/L (12-35); Bilirubin Direct* 0.3 mg/dL (0.0-0.5); Bilirubin Total* 0.4 mg/dL (0.1-1.5); Calcium* 9.4 mg/dL (8.4-10.6); Carbon Dioxide* 30 mmol/L (20-32); Glucose* 114 mg/dL (60-115); Total Protein* 7.5 g/dL (6.0-8.3)
[2025-07-22 21:07] LABS: HCG Qualitative Serum* Negative (Negative)
[2025-07-22 21:33] VITALS: BP 125/80; PULSE 74; RESP 20; TEMP 36.7; O2SAT 99
[2025-07-22 21:34] VITALS: BP 125/80; PULSE 74; RESP 20; TEMP 36.7
== END 2025-07-22 21:36 | disposition home or self-care (01) ==
PROVIDERS: Emergency Provider Family Medicine
DX: K80.50 Calculus of bile duct without cholangitis or cholecystitis without obstruction (principal)
CPT/HCPCS: 36415; 80053; 82248; 83605; 83690; 84703; 85025; 86140; 94761; 96374; 96375; 99284; J1171; J2405; J7030